=== PATIENT | female | born 1950 | race Caucasian/White ===

== ENCOUNTER 2021-10-09 06:35 | Observation (INO) | payer MEDICARE, OTHER ==
[2021-10-05 14:34] LABS: BASOPHILS % (AUTO) 0.9 % (0.0-5.0); EOSINOPHILS % (AUTO) 1.6 % (0.0-8.0); HEMATOCRIT 42.9 % (36-48); LYMPHOCYTES % (AUTO) 24.8 % (21.0-51.0); MEAN CORPUSCULAR HEMOGLOBIN 29.7 pg (27.0-33.0); MEAN CORPUSCULAR HGB CONC 32.6 g/dL (32.0-36.0); MEAN CORPUSCULAR VOLUME 91.1 fL (79-99); MONOCYTES % (AUTO) 6.9 % (3.0-13.0); NEUTROPHILS % (AUTO) 65.6 % (40.0-77.0); PLATELET COUNT (AUTO) 304 K/uL (130-400); RED BLOOD CELL COUNT(AUTO) 4.71 MIL/uL (4.00-5.50); RED CELL DISTRIBUTION WIDTH 12.6 % (11.0-15.5); WHITE BLOOD COUNT (AUTO) 8.9 K/uL (4.8-10.8)
[2021-10-05 14:50] LABS: INR 1.03 (0.85-1.15); PROTHROMBIN TIME 11.2 SEC (9.6-11.6)
[2021-10-05 14:52] LABS: PARTIAL THROMBOPLASTIN TIME 29.5 SEC (26.3-35.5)
[2021-10-08 10:43] VITALS: BP 177/89
[2021-10-09] VITALS (24 sets, daily range): BP systolic 130–169; BP diastolic 61–92
[~2021-10-09] VITALS: Ht 165.1 cm; Wt 78.6 kg
[~2021-10-09 06:35] MED LIST: ASPI-1012 PO; ATOR-2 PO; FLUO40CA49 PO; LOSA100T58 PO; NIFE20CA PO; PANT40TA54 PO; TRAM50TA4 PO
[2021-10-09] MEDS ORDERED: CEFAZOLIN SODIUM 1 GM VIAL ONE ×2 (06:49→12:41)
[2021-10-09 07:14] LABS: CREATININE 0.8 mg/dL (0.5-1.5); POTASSIUM 4.2 mmol/L (3.5-5.1)
[2021-10-09] MEDS: LACTATED RINGERS 1000ML 1,000 ML IV SCH ×3 (07:22→10:19)
[2021-10-09] MEDS ORDERED: TRANEXAMIC ACID 1000MG/10ML ONE (07:34)
[2021-10-09] MEDS ORDERED: GLYCOPYRROLATE 1 MG/5 ML SYRINGE ONE (07:36)
[2021-10-09] MEDS ORDERED: LIDOCAINE PF 100MG/5ML (2%) SYRINGE 5ML ONE (07:36)
[2021-10-09] MEDS ORDERED: SUCCINYLCHOLINE CHLORIDE 20 MG/ML 10 ML VIAL ONE (07:36)
[2021-10-09] MEDS ORDERED: PROPOFOL 10 MG/ML 20ML VIAL IV ONE ×2 (07:36→09:59)
[2021-10-09] MEDS ORDERED: MIDAZOLAM HCL 1 MG/ML 2ML VIAL ONE (07:37)
[2021-10-09] MEDS ORDERED: FENTANYL CITRATE PF 50 MCG/1 ML 2ML VIAL ONE ×2 (07:37→09:14)
[2021-10-09] MEDS ORDERED: ROCURONIUM 10MG/1ML SYR 10 MG/ML ML ONE (07:37)
[2021-10-09] MEDS ORDERED: NEOSTIGMINE 5MG/5ML SYR IV ONE (07:37)
[2021-10-09] MEDS ORDERED: CEFAZOLIN SODIUM 1 GM VIAL IVP ONE (08:00)
[2021-10-09] MEDS ORDERED: PHENYLEPHRINE HCL 10 MG/ML 1ML VIAL IV ONE (08:53)
[2021-10-09] MEDS ORDERED: ROPIVICAINE 250MG+KETOROLAC 15MG+EPINEPHRINE 0.3+CLONIDINE 80 IV SCH ×5 (09:00)
[2021-10-09] MEDS ORDERED: ROPIVICAINE 250MG+KETOROLAC 15MG+EPINEPHRINE 0.3+CLONIDINE 80 IV PRN ×5 (09:00)
[2021-10-09] MEDS ORDERED: ROPIVACAINE 0.5% 5MG/ML 30ML IJ ONE (09:26)
[2021-10-09] MEDS: ACETAMINOPHEN 500 MG TABLET PO SCH ×2 (10:00→17:36)
[2021-10-09] MEDS ORDERED: HYDROCODONE/ACETAMINOPHEN 5/325 MG TAB PO PRN (10:00)
[2021-10-09] MEDS ORDERED: ONDANSETRON 4MG INJ IVP PRN (10:00)
[2021-10-09] MEDS: 0.9%NACL 1000ML 1,000 ML IV SCH ×2 (13:14→20:00)
[2021-10-09] MEDS: TRAMADOL HCL 50 MG TABLET PO SCH ×2 (13:15→17:35)
[2021-10-09] MEDS ORDERED: BENZOCAINE/MENTH/CETYLPYRD CL 1 EACH LOZENGE MM ONE (13:32)
[2021-10-09] MEDS: BENZOCAINE/MENTH/CETYLPYRD CL 1 EACH LOZENGE MM PRN ×2 (14:06→17:35)
[2021-10-09] MEDS: CEFAZOLIN SODIUM 1 GM VIAL IVP SCH (14:06)
[2021-10-09] MEDS: OXYCODONE HCL 5 MG TAB PO PRN (16:47)
[2021-10-09] MEDS: ASPIRIN 81 MG EC TAB PO SCH (20:36)
[2021-10-09] MEDS ORDERED: ZOLPIDEM TARTRATE 5 MG TAB PO PRN (21:30)
[2021-10-09] MEDS: MORPHINE 4 MG SYG IVP PRN (22:00)
[2021-10-10] MEDS ORDERED: CEFAZOLIN SODIUM 1 GM VIAL ONE (00:35)
[2021-10-10] MEDS: CEFAZOLIN SODIUM 1 GM VIAL IVP SCH (00:44)
[2021-10-10] MEDS: TRAMADOL HCL 50 MG TABLET PO SCH ×4 (00:55→12:18)
[2021-10-10] MEDS: ACETAMINOPHEN 500 MG TABLET PO SCH ×2 (00:56→08:50)
[2021-10-10 04:01] VITALS: BP 126/60
[2021-10-10 04:15] LABS: HEMATOCRIT 33.8 % (36-48); MEAN CORPUSCULAR HEMOGLOBIN 30.3 pg (27.0-33.0); MEAN CORPUSCULAR HGB CONC 33.1 g/dL (32.0-36.0); MEAN CORPUSCULAR VOLUME 91.4 fL (79-99); RED BLOOD CELL COUNT(AUTO) 3.7 MIL/uL (4.00-5.50); RED CELL DISTRIBUTION WIDTH 12.9 % (11.0-15.5); WHITE BLOOD COUNT (AUTO) 10.4 K/uL (4.8-10.8)
[2021-10-10 05:02] LABS: CREATININE 0.8 mg/dL (0.5-1.5); POTASSIUM 4.7 mmol/L (3.5-5.1)
[2021-10-10] MEDS: 0.9%NACL 1000ML 1,000 ML IV SCH (06:00)
[2021-10-10] MEDS: MORPHINE 4 MG SYG IVP PRN (06:48)
[2021-10-10 07:30] VITALS: BP 165/85
[2021-10-10] MEDS: OXYCODONE HCL 5 MG TAB PO PRN (08:48)
[2021-10-10] MEDS: ASPIRIN 81 MG EC TAB PO SCH (08:50)
[2021-10-10] MEDS ORDERED: NIFEDIPINE ER 30 MG TAB PO SCH (09:00)
[2021-10-10] MEDS ORDERED: LOSARTAN 100 MG TABLET PO SCH (09:00)
[2021-10-10] MEDS ORDERED: FLUOXETINE HCL 20 MG CAPSULE PO SCH (09:00)
[2021-10-10] MEDS ORDERED: POLYETHYLENE GLYCOL 3350 17 GM POWD.PACK PO SCH (09:00)
[2021-10-10] MEDS ORDERED: PANTOPRAZOLE 40 MG TAB DR PO SCH (09:00)
[2021-10-10] MEDS: LACTATED RINGERS 1000ML 1,000 ML IV SCH ×2 (09:24→10:19)
[2021-10-10 11:00] VITALS: BP 166/85
[2021-10-12] MEDS ORDERED: BISACODYL 10 MG SUPP.RECT RC PRN (10:00)
== END 2021-10-10 16:25 | disposition home or self-care (01) ==
LOC: DAH 06:35 → 4AH 06:36 → DAH 06:36
PROVIDERS: ADMIT Orthopaedic Surgery; ATTEND Orthopaedic Surgery
DX: M17.11 Unilateral primary osteoarthritis, right knee (principal); Z20.822 Contact with and (suspected) exposure to COVID-19; G89.29 Other chronic pain; M25.561 Pain in right knee; Z79.899 Other long term (current) drug therapy; Z98.890 Other specified postprocedural states
CPT/HCPCS: 27446; 36415 ×3; 73560; 80048 ×2; 85025; 85027; 85610; 85730; 87635; 87641; 96374; 96375; 96376; 97039 ×2; 97116 ×2; 97161; 97530 ×2; A4215; A4221; A4222; A4223; A4600; A4649 ×7; A4663; A4930; C1776; C9803; G0378 ×32; J0171; J0330; J0690 ×3; J0735; J1885; J2001; J2250; J2270 ×2; J2370; J2704 ×2; J2710; J2795 ×2; J3010 ×2; J3490 ×2; J7030; J7120; S2900